=== PATIENT | male | born 1965 | race Caucasian/White ===

== ENCOUNTER 2016-11-02 18:23 | Emergency (ER) | payer OTHER ==
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
[2016-11-02 18:45] VITALS: BP 156/95; PULSE 76; RESP 16; TEMP 98.4; O2SAT 96
== END 2016-11-02 19:15 | disposition home or self-care (01) ==
DX: S60.221A Contusion of right hand, initial encounter (principal); S40.012A Contusion of left shoulder, initial encounter; F17.200 Nicotine dependence, unspecified, uncomplicated; V49.9XXA Car occupant (driver) (passenger) injured in unspecified traffic accident, initial encounter; Y92.410 Unspecified street and highway as the place of occurrence of the external cause